=== PATIENT | female | born 2005 | race Caucasian/White ===

== ENCOUNTER 2025-01-10 20:48 | Emergency (ER) | payer OTHER ==
[~2025-01-10] VITALS: Ht 175.3 cm; Wt 59.1 kg
[2025-01-10 20:59] VITALS: TEMP 97.9
[2025-01-10 21:09] LABS: COVID AG,FIA SOURCE NASAL SWAB
[2025-01-10 21:33] LABS: SARS-COV2 (COVID) ANTIGEN,FIA Negative (Negative)
[2025-01-10 21:34] LABS: INFLUENZA TYPE A NEGATIVE FOR TYPE A (NEGATIVE); INFLUENZA TYPE B NEGATIVE FOR TYPE B (NEGATIVE)
[2025-01-10 22:26] LABS: PLATELET COUNT (AUTO) 217 K/uL (150-450); RED BLOOD CELL COUNT(AUTO) 5.50 MIL/uL (4.00-5.20); RED CELL DISTRIBUTION WIDTH 13.8 % (11.5-14.5); WHITE BLOOD COUNT (AUTO) 8.5 K/uL (4.5-11.0)
[2025-01-10 22:32] LABS: CALCIUM, TOTAL 9.4 mg/dL (8.8-10.5); CREATININE 0.74 mg/dL (0.60-1.30); GLOMERULAR FILTR. RATE CALC > 60 mL/min (>60); GLUCOSE,RANDOM 95 mg/dL (70-110); SODIUM SERUM 139 mmol/L (136-145); UREA NITROGEN, BLOOD 12 mg/dL (7-18)
[2025-01-10 23:20] VITALS: BP 110/67; PULSE 80; RESP 16; O2SAT 98
== END 2025-01-10 23:36 | disposition home or self-care (01) ==
LOC: EMS 20:48
DX: J30.9 Allergic rhinitis, unspecified (principal); N89.8 Other specified noninflammatory disorders of vagina; Z20.822 Contact with and (suspected) exposure to COVID-19
CPT/HCPCS: 71045; 80048; 84702; 85025; 87804; 93005; 99285; 36415-L1; 36415-TC